=== PATIENT | male | born 1965 | race African-American/Black ===

== ENCOUNTER 2016-11-30 16:43 | Emergency (ER) | payer OTHER ==
[2016-11-30] MEDS ORDERED: HYDROcodone/APAP 5/325MG 1 TAB TABLET PO ONE (16:45)
[2016-11-30 16:50] VITALS: BP 125/87
--- NOTE | 2016-11-30 16:57 | PHYS DOC ---
Adult General Chief Complaint Chief Complaint: HAND PROBLEM HPI HPI Patient is a 51 year old male with history of arthritis who presents today with left pinky finger pain. Patient states he was ambulating, he states his right leg gave out which is chronic for him he states he was about to fall and hit his left hand on the wall. Patient denies any loss of consciousness. Review of Systems Review of Systems Constitutional: Denies fever or chills [] Eyes: Denies change in visual acuity, redness, or eye pain [] Musculoskeletal: left pinky finger Integument: Denies rash or skin lesions [] Neurologic: Denies headache, focal weakness or sensory changes [] Endocrine: Denies polyuria or polydipsia [] Current Medications Current Medications Current Medications Medications (Trade) Dose Ordered Sig/Tish Start Time Stop Time Status Last Admin Dose Admin Acetaminophen/ Hydrocodone Bitart (Lortab 5/325) 1 tab 1X ONCE 11/30/16 16:45 11/30/16 16:59 DC 11/30/16 17:09 1 TAB Allergies Allergies Allergies Coded Allergies Type Severity Reaction Last Updated Verified No Known Drug Allergies 11/30/16 No Physical Exam Physical Exam Constitutional: Well developed, well nourished, no acute distress, non-toxic appearance. [] HENT: Normocephalic, atraumatic, bilateral external ears normal, oropharynx moist, no oral exudates, nose normal. [] Eyes: PERRLA, EOMI, conjunctiva normal, no discharge. [] Back: No tenderness, no CVA tenderness. [] Extremities: Left pinky finger DIP joint is in flexion position but easily unflexed. Full range of motion to the left pinky finger. Adequate ulnar sensation to the left pinky finger. +2 left radial pulse. Cap refill less than 2 seconds and left upper extremity. Sensation intact to the left upper extremity. Neurologic: Alert and oriented X 3, normal motor function, normal sensory function, no focal deficits noted. [] Psychologic: Affect normal, judgement normal, mood normal. [] Current Patient Data Vital Signs Vital Signs Date Time Temp Pulse Resp B/P (MAP) Pulse Ox O2 Delivery O2 Flow Rate FiO2 11/30/16 17:09 20 Room Air 11/30/16 16:50 98.7 107 97 98.7 EKG EKG [] Radiology/Procedures Radiology/Procedures [] Course & Med Decision Making Course & Med Decision Making Pertinent Labs and Imaging studies reviewed. (See chart for details) Patient is in the ED with left pinky finger pain after jamming it against a wall. Left pinky finger x-rays interpreted by Dr. Mccullough were noted for DIP Flexon tendon injury at the DIP joint. No fractures. Left pinky finger was then unflexed at the DIP joint. Patient was placed in the finger splint by me, neurovascular exam done by me post splint application is normal, cap refill less than 2 seconds. Provided orthopedic doctor for follow-up in 7 days. Ice elevation encouraged. Discharged in stable condition. Dragon Disclaimer Dragon Disclaimer This electronic medical record was generated, in whole or in part, using a voice recognition dictation system. Departure Departure Impression: Primary Impression: Injury of flexor tendon of left hand Disposition: HOME, SELF-CARE Condition: STABLE Referrals: MICHAEL BREAUX II, MD call his office tomorrow for follow up appointment Patient Instructions: Jammed Finger Additional Instructions: You have Flexon tendon injury of the left pinky finger. Please wear the splint until you're seen by the orthopedic doctor. Call the office tomorrow and set up a follow-up appointment tomorrow. Ice and elevate the finger. Scripts Diclofenac Potassium (DICLOFENAC POTASSIUM) 50 Mg Tablet 1 TAB PO BID, #60 TAB 1 Refill Prov: RUDI DIAZ APRN 11/30/16 Problem Qualifiers Primary Impression: Injury of flexor tendon of left hand Encounter type: initial encounter Qualified Codes: S66.802A - Unspecified injury of other specified muscles, fascia and tendons at wrist and hand level, left hand, initial encounter RUDI DIAZ APRN November 30, 2016 16:57
[2016-11-30] MEDS ORDERED: DICL50TA2 PO (17:36)
--- NOTE | 2016-12-01 08:40 | RAD ---
Left little finger, 3 views, 11/30/2016: History: Finger pain, injury No fracture or dislocation is identified. The distal aspect of the finger is held in flexion at the DIP joint raising the possibility of tendon injury. Clinical correlation is suggested. IMPRESSION: No acute bony abnormality is detected.
== END 2016-11-30 17:44 | disposition home or self-care (01) ==
LOC: ER 16:43
DX: S66.002A Unspecified injury of long flexor muscle, fascia and tendon of left thumb at wrist and hand level, initial encounter (principal); M19.90 Unspecified osteoarthritis, unspecified site; W01.198A Fall on same level from slipping, tripping and stumbling with subsequent striking against other object, initial encounter; Y93.89 Activity, other specified; Y92.89 Other specified places as the place of occurrence of the external cause; Y99.8 Other external cause status
CPT/HCPCS: 29130; 73140; 99284-25